=== PATIENT | female | born 1965 | race Caucasian/White ===

== ENCOUNTER 2020-08-13 17:10 | Outpatient (CLI) | payer MEDICARE, MEDICAID | END 2020-08-13 17:11 | disposition home or self-care (01) | LOC: COV 17:10 | PROVIDERS: ATTEND Family Medicine | DX: M79.10 Myalgia, unspecified site (principal); R53.83 Other fatigue; R68.83 Chills (without fever); J02.9 Acute pharyngitis, unspecified; R19.7 Diarrhea, unspecified; R09.81 Nasal congestion; R43.8 Other disturbances of smell and taste; Z20.828 Contact with and (suspected) exposure to other viral communicable diseases ==

== ENCOUNTER 2020-09-28 12:38 | Outpatient (CLI) | payer MEDICARE, MEDICAID ==
[2020-09-28 16:01] LABS: BASOPHILS % (AUTO) 0.6 %; EOSINOPHILS # (AUTO) 0.2 10^3/uL (0.0-0.7); EOSINOPHILS % (AUTO) 2.6 %; HGB - HEMOGLOBIN 14.2 g/dL (12.0-16.0); LYMPHOCYTES # (AUTO) 2.4 10^3/uL (1.5-3.5); LYMPHOCYTES % (AUTO) 38.9 %; MEAN CORPUSCULAR HEMOGLOBIN 31.4 pg (27.0-31.0); MEAN CORPUSCULAR HGB CONC 32.1 g/dL (32.0-36.0); MEAN PLATELET VOLUME 9.9 fL (7.9-10.8); MONOCYTES # (AUTO) 0.4 10^3/uL (0.0-1.0); MONOCYTES % (AUTO) 5.7 %; NEUTROPHILS # (AUTO) 3.3 10^3/uL (1.5-6.6); PLT - PLATELET COUNT 344 10^3/uL (130-450); RED BLOOD COUNT 4.52 10^6/uL (4.20-5.40); RED CELL DISTRIBUTION WIDTH 12.1 % (12.0-15.0); WHITE BLOOD COUNT 6.3 x10^3/uL (4.8-10.8)
[2020-09-28 16:15] LABS: ALBUMIN 4.2 g/dL (3.2-5.5); ALBUMIN/GLOBULIN RATIO 1.2 (1.0-2.2); ALKALINE PHOSPHATASE 90 IU/L (42-121); ALT ALANINE AMINOTRANSFERASE 23 IU/L (10-60); AST ASPARTATE AMINOTRANSFERASE 20 IU/L (10-42); BILIRUBIN,TOTAL 0.7 mg/dL (0.2-1.0); BUN - BLOOD UREA NITROGEN 11 mg/dL (6-20); CALCIUM 9.4 mg/dL (8.5-10.3); CARBON DIOXIDE - CO2 27 mmol/L (21-32); CHLORIDE 105 mmol/L (101-111); CHOL/HDL RATIO 3.9 (<4.4); CHOLESTEROL 227 mg/dL; CREATININE 0.7 mg/dL (0.4-1.0); GLUCOSE 98 mg/dL (70-100); HDL CHOLESTEROL 58 mg/dL; LDL CHOLESTEROL,CALCULATED 156 mg/dL; LDL/HDL RATIO 2.7 (<4.4); SODIUM 139 mmol/L (135-145); TOTAL PROTEIN 7.6 g/dL (6.7-8.2); VLDL CHOLESTEROL 13 mg/dL
== END 2020-09-28 12:39 | disposition home or self-care (01) ==
LOC: LAB.S 12:38
PROVIDERS: ATTEND Physician Assistant
DX: F33.42 Major depressive disorder, recurrent, in full remission (principal); G47.00 Insomnia, unspecified; E78.5 Hyperlipidemia, unspecified; E55.9 Vitamin D deficiency, unspecified; F41.9 Anxiety disorder, unspecified; Z79.899 Other long term (current) drug therapy
CPT/HCPCS: 36415; 80053; 80061; 82306; 83721; 84443; 85025

== ENCOUNTER 2020-10-11 12:01 | Emergency (ER) | payer MEDICARE, MEDICAID ==
[2020-10-11] MEDS ORDERED: SODIUM CHLORIDE 0.9% 1,000 ML IV STA (12:34)
[2020-10-11] MEDS ORDERED: MORPHINE 10 MG/ML VIAL IVP STA (12:34)
[2020-10-11] MEDS ORDERED: ONDANSETRON 4 MG/2 ML VIAL IVP STA (12:34)
--- NOTE | 2020-10-11 12:37 | ED Physician Documentation ---
History of Present Illness - Stated complaint Stated Complaint: ABD PX - Chief complaint Chief Complaint: Abd Pain - Additonal information Additional information: 55-year-old female presents to the emergency department with chief complaint of right upper quadrant abdominal and right lower rib pain. She reports that About 1 month ago she had fallen and thought that she had injured her right lower ribs. She did not seek medical care for that And had at one point felt that the pain was getting better. however about a week ago she began having worsening pain in this area. Pain is certainly worse after eating with associated nausea. She denies any fevers vomiting diarrhea or melena. She also reports that she was told she had a small hiatal hernia about 5 years ago and is unsure if this is related. Screening labs today are essentially couple. No leukocytosis significant transaminase or findings of urinary tract infection/hematuria. We did proceed with a limited right upper quadrant abdominal ultrasound that also revealed no findings consistent with acute cholecystitis. I do not feel that she would benefit from CT imaging at this time. She may have musculoskeletal pain related to the fall a month ago. She feels that she had cleaned too hard at home and exacerbated the pain. She did have moderate relief with the Toradol. I have advised the lidocaine patch over the rib wall that is tender as well as continuation of the as needed Motrin and Tylenol at home. She will return to the emergency department for worsening symptoms. Review of Systems Constitutional: denies: Fever, Chills Eyes: reports: Reviewed and negative Ears: reports: Reviewed and negative Nose: reports: Reviewed and negative Throat: reports: Reviewed and negative Cardiac: reports: Chest pain / pressure Respiratory: reports: Reviewed and negative GI: reports: Abdominal Pain, Nausea, Constipation. denies: Vomiting, Bloody / black stool : denies: Dysuria, Frequency, Hesitancy Skin: reports: Reviewed and negative Musculoskeletal: reports: Reviewed and negative Neurologic: reports: Reviewed and negative PD PAST MEDICAL HISTORY - Allergies Allergies/Adverse Reactions: Allergies Allergy/AdvReac Type Severity Reaction Status Date / Time No Known Drug Allergies Allergy Verified 10/11/20 12:13 PD ED PE EXPANDED - General General: Alert, No acute distress - Cardiac Cardiac: Regular Rate, Regular Rhythm, Radial strong equal, Pedal strong equal, Cap refill < 2 sec. No: Murmur Present - Respiratory Respiratory: Clear to ausultation yousuf, Other (tenderness to palpation right lower lateral anterior ribs). No: Distress, Labored - Abdomen Abdomen: Normal Bowel sounds, Tender to palpation, RUQ (Tenderness to right upper quadrant. No tenderness left flank left CVA right lower quadrant or pelvic area.). No: Rebound, Guarding - Derm Derm: Normal color. No: Rash, Petecchiae, Purpura - Extremities Extremities: Normal, Deformity - Neuro Neuro: Alert and Oriented X 3, CNII-XII intact - GCS Eye Opening: Spontaneous Motor: Obeys Commands Verbal: Oriented Total: 15 Results - Vitals Vitals: Vital Signs - 24 hr 10/11/20 10/11/20 10/11/20 12:10 12:29 14:11 Temperature 36.1 C L Heart Rate 80 68 53 L Respiratory 16 18 18 Rate Blood Pressure 111/72 116/87 H 134/82 H O2 Saturation 99 100 100 Oxygen O2 Source Room air - Labs Labs: Laboratory Tests 10/11/20 10/11/20 10/11/20 13:00 13:00 14:00 WBC 8.4 RBC 4.19 L Hgb 13.4 Hct 39.9 MCV 95.2 MCH 32.0 H MCHC 33.6 RDW 12.1 Plt Count 274 MPV 9.6 Neut # (Auto) 4.6 Lymph # (Auto) 3.1 [place] # (Auto) 0.5 Eos # (Auto) 0.2 Baso # (Auto) 0.1 Absolute Nucleated RBC 0.00 Nucleated RBC % 0.0 Sodium 139 Potassium 3.9 Chloride 104 Carbon Dioxide 23 Anion Gap 12.0 BUN 11 Creatinine 0.6 Estimated GFR (MDRD) 104 Glucose 94 Calcium 8.9 Total Bilirubin 0.6 AST 17 ALT 18 Alkaline Phosphatase 74 Total Protein 7.0 Albumin 4.0 Globulin 3.0 Albumin/Globulin Ratio 1.3 Lipase 68 H Urine Color YELLOW Urine Clarity CLEAR Urine pH 6.0 Ur Specific [place] 1.020 Urine Protein NEGATIVE Urine Glucose (UA) NEGATIVE Urine Ketones 15 H Urine Occult Blood NEGATIVE Urine Nitrite NEGATIVE Urine Bilirubin NEGATIVE Urine Urobilinogen 0.2 (NORMAL) Ur Leukocyte Esterase NEGATIVE Ur Microscopic Review NOT INDICATED Urine Culture Comments NOT INDICATED - Rads (name of study) CXR Radiology: Final report received (no acute cardiopulmonary findings) abd US limited Radiology: See rad report, Other (Technologist reports no findings consistent with acute cholecystitis. No gallstones. CBD within normal size. No obstructing stones. No pericholecystic fluid.) PD MEDICAL DECISION MAKING - ED course Complexity details: reviewed results, re-evaluated patient, considered differential, d/w patient ED course: 55-year-old female presents to the emergency department for evaluation of about 1 week right upper quadrant abdominal pain as well as right lower anterior rib pain. She does report a fall of about 1 month ago. However the pain in her abdomen is worse after eating. And she does have aRUQ pain, but no murphys, rebound or guarding. We will proceed with routine screening labs as well as a limited abdominal ultrasound to evaluate for possible cholecystitis. 1430: Screening labs show no acute findings. No leukocytosis, signs of urinary tract infection, hematuria or significant transaminase. Abdominal ultrasound did not reveal any findings consistent with acute cholecystitis. Chest x-ray showed no pneumonia. No obvious rib fractures. She was given Toradol here in the emergency department and did have moderate relief of the pain. I do not feel that she would benefit from CT imaging at this time given that her exam and labs are otherwise reassuring. I recommend she continue Tylenol and Motrin at home. She may benefit from a lidocaine patch over the rib wall that is tender. Emergent return precautions discussed Departure - Departure Disposition: 01 Home, Self Care Clinical Impression: RUQ abdominal pain, Rib pain on right side Condition: Stable Record reviewed to determine appropriate education?: Yes Comments: Jessa your chest x-ray today was normal. Your labs today are normal. Your urine shows no signs of infection or blood in it. The ultrasound that we completed did not show any findings that suggest problems with your gallbladder. The cause of your pain is unclear but it may be muscle strain related to recently cleaning hard or from the fall 1 month ago. I recommend that you continue with Tylenol and ibuprofen [id number] at home. You may benefit from buying an [id number] lidocaine patch and placing it on your rib wall. These patches are called Salonpas at the pharmacy. Please return to the emergency department for fevers, uncontrolled vomiting, worsening pain or any other emergent concerns. I do hope that you are feeling better soon
[2020-10-11] MEDS ORDERED: ACETAMINOPHEN 1,000 MG/100 ML 100 ML IV ONE (13:09)
[2020-10-11 13:15] LABS: BASOPHILS # (AUTO) 0.1 10^3/uL (0.0-0.1); BASOPHILS % (AUTO) 0.6 %; EOSINOPHILS # (AUTO) 0.2 10^3/uL (0.0-0.7); EOSINOPHILS % (AUTO) 1.9 %; HGB - HEMOGLOBIN 13.4 g/dL (12.0-16.0); LYMPHOCYTES # (AUTO) 3.1 10^3/uL (1.5-3.5); LYMPHOCYTES % (AUTO) 36.9 %; MEAN CORPUSCULAR HGB CONC 33.6 g/dL (32.0-36.0); MEAN CORPUSCULAR VOLUME 95.2 fL (81.0-99.0); MEAN PLATELET VOLUME 9.6 fL (7.9-10.8); MONOCYTES # (AUTO) 0.5 10^3/uL (0.0-1.0); NEUTROPHILS # (AUTO) 4.6 10^3/uL (1.5-6.6); NEUTROPHILS % (AUTO) 54.4 %; PLT - PLATELET COUNT 274 10^3/uL (130-450); RED BLOOD COUNT 4.19 10^6/uL (4.20-5.40); RED CELL DISTRIBUTION WIDTH 12.1 % (12.0-15.0); WHITE BLOOD COUNT 8.4 x10^3/uL (4.8-10.8)
--- NOTE | 2020-10-11 13:20 | XRAY Report ---
PROCEDURE: Chest 1 View X-Ray INDICATIONS: chest pain TECHNIQUE: One view of the chest was acquired. COMPARISON: None. FINDINGS: Surgical changes and devices: None. Lungs and pleura: No pleural effusions or pneumothorax. Lungs are clear. Mediastinum: Mediastinal contours appear normal. Heart size is normal. Bones and chest wall: No suspicious bony lesions. Overlying soft tissues appear unremarkable. IMPRESSION: No acute cardiopulmonary findings. Reviewed by: Mahnaz Murillo MD on 10/11/2020 12:19 PM [facility] Approved by: Mahnaz Murillo MD on 10/11/2020 12:19 PM [facility] Station ID: [id number]
[2020-10-11 13:36] LABS: ALBUMIN/GLOBULIN RATIO 1.3 (1.0-2.2); BILIRUBIN,TOTAL 0.6 mg/dL (0.2-1.0); CALCIUM 8.9 mg/dL (8.5-10.3); CREATININE 0.6 mg/dL (0.4-1.0)
[2020-10-11] MEDS ORDERED: KETOROLAC 30 MG/ML VIAL IVP STA (13:43)
[2020-10-11 14:06] LABS: BILIRUBIN,URINE NEGATIVE (NEGATIVE); CLARITY,URINE CLEAR (CLEAR); GLUCOSE, URINE (UA) NEGATIVE (NEGATIVE); KETONES,URINE (UA) 15 mg/dL (NEGATIVE); LEUKOCYTE ESTERASE, URINE NEGATIVE (NEGATIVE); NITRITE,URINE NEGATIVE (NEGATIVE); OCCULT BLOOD,URINE NEGATIVE (NEGATIVE); PROTEIN,URINE NEGATIVE (NEGATIVE); UROBILINOGEN,URINE 0.2 (NORMAL) E.U./dL (NORMAL)
[2020-10-11 14:12] VITALS: BP 134/82
--- NOTE | 2020-10-11 14:56 | Ultrasound Report ---
PROCEDURE: Abdomen Limited INDICATIONS: RUQ pain; ? GB TECHNIQUE: Real-time scanning was performed of the abdominal and retroperitoneal organs, with image documentatio n. COMPARISON: None. FINDINGS: Liver: Liver is normal in size and homogeneous in echotexture. Gallbladder: The gallbladder wall measures 2 mm in diameter. Possible sludge is layered in the fundus . No stones, pericholecystic fluid, or sonographic [place] sign. Biliary ducts: Intrahepatic bile ducts are non-dilated. Extrahepatic bile duct caliber measures 3 m m. Normal is 6-7 mm or less in diameter, or 10 mm or less post-cholecystectomy. Pancreas: Visualized portions of the pancreas are sonographically normal. Kidneys: Right kidney measures 9.3 cm long. No hydronephrosis or nephrolithiasis. No solid masses . IVC: Intrahepatic inferior vena cava is patent. Miscellaneous: No free abdominal fluid. IMPRESSION: 1. Possible gallbladder sludge. No findings to suggest acute cholecystitis or choledocholithiasis. Reviewed by: Mahnaz Murillo MD on 10/11/2020 1:55 PM [facility] Approved by: Mahnaz Murillo MD on 10/11/2020 1:55 PM [facility] Station ID: [id number]
== END 2020-10-11 14:39 | disposition home or self-care (01) ==
LOC: ED 12:01
DX: R10.11 Right upper quadrant pain (principal); R07.81 Pleurodynia; R11.0 Nausea; K44.9 Diaphragmatic hernia without obstruction or gangrene
CPT/HCPCS: 36415; 71045; 76705; 80053; 81003; 83690; 85025; 96365; 96375; 99284; J0131; 81001; 87086

== ENCOUNTER 2020-10-29 14:12 | Outpatient (CLI) | payer MEDICARE, MEDICAID ==
--- NOTE | 2020-10-29 16:34 | DEXA Report ---
PROCEDURE: Dexa Spine and/or Hip INDICATIONS: POSTMENOPAUSAL TECHNIQUE: Dual energy x-ray absorptiometry (DXA) was performed on a dinCloud System. Regions measur ed are the AP Spine, femoral neck, and if needed forearm. COMPARISON: None. FINDINGS: Lumbar Spine: Bone Mineral Density 1.119 g/cm/cm,T score -0.5, normal Left Hip: Bone Mineral Density 0.792 g/cm/cm,T score -1.7, moderate osteopenia Left Femoral Neck: Bone Mineral Density 0.818 g/cm/cm, T score -1.6, moderate osteopenia (T score greater or equal to -1.0: NORMAL) (T score from -1.1 to -2.4: OSTEOPENIA) (T score less than or equal to -2.5 to: OSTEOPOROSIS) Impression: Moderate osteopenia within the left hip and femoral neck. Patients with diagnosis of osteoporosis or osteopenia should have regular bone mineral density assess ment. For those eligible for Medicare, routine testing is allowed once every 2 years. Testing frequ ency can be increased for patients who have rapidly progressing disease or for those who are receivin g medical therapy to restore bone mass. Reviewed by: Sherrell Winchester MD on 10/29/2020 4:32 PM PST Approved by: Sherrell Winchester MD on 10/29/2020 4:32 PM PST Station ID: [id number]
== END 2020-10-29 14:13 | disposition home or self-care (01) ==
LOC: DI 14:12
PROVIDERS: ATTEND Physician Assistant
DX: M85.89 Other specified disorders of bone density and structure, multiple sites (principal); Z78.0 Asymptomatic menopausal state

== ENCOUNTER 2020-11-13 12:26 | Outpatient (CLI) | payer MEDICARE, MEDICAID | END 2020-11-13 12:27 | disposition critical access hospital (66) | LOC: EMS 12:26 | PROVIDERS: ATTEND Surgery | DX: S69.91XA Unspecified injury of right wrist, hand and finger(s), initial encounter (principal); W01.0XXA Fall on same level from slipping, tripping and stumbling without subsequent striking against object, initial encounter; Y93.E6 Activity, residential relocation; Y92.009 Unspecified place in unspecified non-institutional (private) residence as the place of occurrence of the external cause | CPT/HCPCS: A0425; A0427 ==

== ENCOUNTER 2020-11-13 13:06 | Emergency (ER) | payer MEDICARE, MEDICAID ==
--- NOTE | 2020-11-13 13:55 | XRAY Report ---
PROCEDURE: Hand 3 View RT INDICATIONS: FOOSH TECHNIQUE: 3 views of the hand(s) acquired. COMPARISON: None FINDINGS: Bones: Comminuted, intra-articular fracture of the distal radius is noted. Distal radius fracture fra gments and carpal bones are dorsally displaced and angulated. Soft tissues: No suspicious soft tissue calcifications. IMPRESSION: Comminuted, intra-articular distal radius fracture. Reviewed by: Malka Garrett MD, PhD on 11/13/2020 12:53 PM [facility] Approved by: Malka Garrett MD, PhD on 11/13/2020 12:53 PM [facility] Station ID: [id number]
--- NOTE | 2020-11-13 13:57 | XRAY Report ---
PROCEDURE: Forearm RT INDICATIONS: FOOSH TECHNIQUE: 2 views of the forearm were acquired. COMPARISON: Concurrent x-ray studies of the wrist and hand. FINDINGS: Bones: There is a comminuted fracture of the distal radius with extension to the radiocarpal and dist al radioulnar joints. A minimally displaced fracture is present at the base of the ulnar styloid. The re is associated dorsal displacement and angulation. No fractures in the proximal or mid radius or ul na. Soft tissues: There is periarticular soft tissue swelling at the wrist. IMPRESSION: 1. Comminuted fracture of the distal radius with dorsal angulation and displacement. Articular extens ion to the radiocarpal and distal radioulnar joints demonstrated. Reviewed by: Kahlil Ramos MD on 11/13/2020 1:55 PM [facility] Approved by: Kahlil Ramos MD on 11/13/2020 1:55 PM [facility] Station ID: [id number]
--- NOTE | 2020-11-13 13:57 | XRAY Report ---
PROCEDURE: Wrist 3 View RT INDICATIONS: wrist pain TECHNIQUE: 3 views of the wrist were acquired. COMPARISON: None FINDINGS: Bones: Comminuted, intra-articular fracture of the distal radius is noted. Radius fracture fragments and carpal bones are dorsally subluxed with dorsal angulation. Cortical step-off at the base of the u lnar styloid process noted compatible with nondisplaced fracture. Soft tissues: No suspicious soft tissue calcifications. IMPRESSION: 1. Comminuted, intra-articular distal radius fracture. 2. Nondisplaced ulnar styloid process fracture. Reviewed by: Malka Garrett MD, PhD on 11/13/2020 12:55 PM [facility] Approved by: Malka Garrett MD, PhD on 11/13/2020 12:55 PM [facility] Station ID: [id number]
[2020-11-13] MEDS ORDERED: LIDOCAINE 2%-EPI 1:100000 20 ML MDV SUBQ STA (14:10)
[2020-11-13] MEDS ORDERED: HYDROcod/ACETAM 10 MG/325 MG TABLET PO STA (14:10)
[2020-11-13] MEDS ORDERED: KETOROLAC 30 MG/ML VIAL IM STA (14:10)
--- NOTE | 2020-11-13 16:27 | XRAY Report ---
PROCEDURE: Wrist 3 View RT INDICATIONS: post reduction TECHNIQUE: 3 views of the wrist were acquired. COMPARISON: Earlier on 11/13/2020 FINDINGS: Bones: Casted views. Impacted, markedly comminuted, displaced distal radius fracture with dorsal subl uxation of the carpus. Soft tissues: No suspicious soft tissue calcifications. IMPRESSION: Status post placement of a cast. The distal radius fracture remains impacted, markedly comminuted, an d significantly displaced. Reviewed by: Dannie Mejias MD on 11/13/2020 4:26 PM PST Approved by: Dannie Mejias MD on 11/13/2020 4:26 PM PST Station ID: [id number]
[2020-11-13] MEDS ORDERED: KETAMINE 500 MG/10 ML VIAL IVP STA (17:18)
--- NOTE | 2020-11-13 18:03 | ED Physician Documentation ---
History of Present Illness - Stated complaint Stated Complaint: FALL, R WRIST PX - Chief complaint Chief Complaint: Trauma Ext - History obtained from History obtained from: Patient - Additonal information Additional information: 55yF with pmh osteoporosis p/w mechanical trip and fall and FOOSH today with sudden onset severe constant aching pain to the R wrist a/w swelling. denies prior injury. denies numbness or weaknes.s Review of Systems Skin: reports: Other (+swelling to wrist) Musculoskeletal: reports: Extremity pain, Joint pain Neurologic: denies: Focal weakness, Numbness PD PAST MEDICAL HISTORY - Past Medical History Past Medical History: Yes Cardiovascular: High cholesterol Respiratory: None Neuro: Headaches Endocrine/Autoimmune: None GI: GERD PSYCHIC READER: None Psych: Anxiety Musculoskeletal: Osteoporosis Derm: None - Past Surgical History Past Surgical History: No /PSYCHIC READER: Hysterectomy - Present Medications Home Medications: Ambulatory Orders Medication Instructions Recorded Confirmed Atorvastatin [Lipitor] 20 mg PO DAILY 11/13/20 11/13/20 Duloxetine HCl [Cymbalta] 60 mg PO DAILY 11/13/20 11/13/20 Ergocalciferol [Vitamin D2] 50,000 unit PO Q7D 11/13/20 11/13/20 clonazePAM [Clonazepam] 1 mg PO DAILY 11/13/20 11/13/20 traZODone [Desyrel] 50 mg PO HS 11/13/20 11/13/20 - Allergies Allergies/Adverse Reactions: Allergies Allergy/AdvReac Type Severity Reaction Status Date / Time No Known Drug Allergies Allergy Verified 11/13/20 13:16 - Social History Does the pt smoke?: Yes Smoking Status: Current every day smoker Does the pt drink ETOH?: Yes Does the pt have substance abuse?: No Substance Use and Type: Marijuana - Immunizations Immunizations are current?: Yes - POLST Patient has POLST: No PD ED PE NORMAL - Vitals Vital signs reviewed: Yes - General General: Alert and oriented X 3, No acute distress - HEENT HEENT: Atraumatic, PERRL, EOMI, Moist mucous membranes, Pharynx benign - Neck Neck: No bony TTP - Cardiac Cardiac: RRR - Respiratory Respiratory: No respiratory distress, Clear bilaterally - Abdomen Abdomen: Non tender, Non distended - Derm Derm: Normal color, Other (R wrist swelling) - Extremities Extremities: Other - Neuro Neuro: Alert and oriented X 3 - Psych Psych: Normal mood, Normal affect Results - Vitals Vitals: Vital Signs - 24 hr 11/13/20 11/13/20 11/13/20 13:13 17:16 17:40 Temperature 36.7 C Heart Rate 57 L 65 74 Respiratory 16 16 16 Rate Blood Pressure 132/69 H 111/75 122/76 O2 Saturation 100 98 99 11/13/20 11/13/20 11/13/20 17:51 17:56 18:00 Temperature Heart Rate 121 H 133 H 147 H Respiratory 16 16 22 Rate Blood Pressure 154/77 H 138/94 H O2 Saturation 100 100 Oxygen O2 Source Room air Procedures - Splint (location) Upper extremity right Splint applied by: Physician Type of splint: Sugar tong Other: Patient tolerated well, No complications, Neurovascular intact, Good alignment - Procedural sedation Sedation prep: Informed consent, Time out completed, Last meal (30 min prior), PE performed, ASA 1 - healthy Sedation medications: toradol, ketamine Patient status during sedation: Drowsy, Responds to tactile, Vitals remained stable, Maintained airway, Recovered uneventfully Sedation recovery: Recovered uneventfully Time in sedation (Minutes): 20 PD MEDICAL DECISION MAKING - ED course ED course: 55-year-old woman presented with acute displaced comminuted distal radius fracture status post FOOSH. Also with ulnar styloid fracture. Attempted reduction with hematoma block and was unable to reduce, therefore we used conscious sedation with successful reduction. Patient recovered without incident. Return precautions given. She will follow up with Dr. Torres in Ortho clinic. Departure - Departure Clinical Impression: Distal radius fracture, right, Fracture of ulnar styloid Condition: Good Instructions: ED Sedation Conscious Dc Ch, Distal Radius Fx Follow-Up: Jeff Torres MD [Provider Admit Priv/Credential] - Comments: You came into the emergency department with a ulnar styloid fracture and a displaced comminuted radius fracture. This means that you had a break in both of the bones of the forearm near the wrist. Comminuted means that it was broken in more than 1 place. Because the radius was displaced, we had to set the bone. You were given ketamine as an anesthetic and then we put the bone back into place. You will need to follow up with orthopedics in 1 week for repeat xrays and to check the arm. keep the splint dry and elevated in the meantime. return to the ed if your splint comes off for any reason, if you have severe pain or numbness in the fingers, or other concerns.
--- NOTE | 2020-11-13 18:26 | XRAY Report ---
PROCEDURE: Wrist 2 View RT INDICATIONS: POST REDUCTION TECHNIQUE: 2 views of the wrist were acquired. COMPARISON: Right wrist series dated 11/13/2020 at 1546 hours FINDINGS: Bones: There has been partial reduction with improved alignment of the distal radial fracture which d emonstrates residual displacement and impaction. Scaphoid view: Not requested Soft tissues: No suspicious soft tissue calcifications. IMPRESSION: Improved alignment of distal radial fracture. Reviewed by: Bairon Lowery MD on 11/13/2020 6:24 PM PST Approved by: Bairon Lowery MD on 11/13/2020 6:24 PM PST Station ID: [id number]
[2020-11-13 19:23] VITALS: BP 110/64
[2020-11-13 20:24] LABS: C. PNEUMONIAE- RESP PCR PANEL NOT DETECTED
[2020-11-14] MEDS ORDERED: LACTATED RINGERS 1,000 ML IV SCH (09:00)
== END 2020-11-13 19:30 | disposition home or self-care (01) ==
LOC: EDUNIT# → ED 13:06
DX: S52.571A Other intraarticular fracture of lower end of right radius, initial encounter for closed fracture (principal); S52.614A Nondisplaced fracture of right ulna styloid process, initial encounter for closed fracture; W01.0XXA Fall on same level from slipping, tripping and stumbling without subsequent striking against object, initial encounter; Z20.822 Contact with and (suspected) exposure to COVID-19; M81.0 Age-related osteoporosis without current pathological fracture; F17.200 Nicotine dependence, unspecified, uncomplicated
CPT/HCPCS: 25605; 73090; 73100; 73110; 73130; 87631; 96372; 99152; 99283; 99285; A9270; 0202U; 94770

== ENCOUNTER 2020-11-14 08:50 | Day surgery (SDC) | payer MEDICARE, MEDICAID ==
--- NOTE | 2020-11-14 08:48 | HISTORY & PHYSICAL EXAMINATION ---
Chief Complaint - Chief Complaint Chief Complaint: Right wrist pain History of Present Illness - Admitted From Admitted From:: home - History Obtained From Records Reviewed: ER notes History obtained from: patient - History of Present Illness HPI Comment/Other: This 55-year-old [id number] woman slipped and fell on an outstretched right hand. Immediate onset of pain and deformity in the right wrist. Denies any open wound. Isolated injury to the right wrist. She was seen in the emergency room where radiographs revealed a displaced distal radius fracture. Initially an attempt was made for reduction with a hematoma block however no improvement alignment was obtained. I was then contacted and recommended that a closed reduction with procedural sedation be performed. This did occur with some improvement in alignment however there is persistent shortening and dorsal angulation of the distal segment. She was splinted and sent home, to return to the hospital this morning. Pain well controlled. Some paresthesias to the median nerve distribution. No previous osteoporotic fractures. She does does take vitamin D supplementation. She did have a bone density test completed 2 weeks ago which showed normal bone quality of the spine and osteopenia of the hip. History - Past Medical History Cardiovascular: reports: High cholesterol Respiratory: reports: None Neuro: reports: Headaches Endocrine/Autoimmune: reports: None GI: reports: GERD GARAGE HELPER: reports: None Psych: reports: Anxiety Musculoskeletal: reports: Osteoporosis Derm: reports: None - Past Surgical History /GARAGE HELPER: reports: Hysterectomy - POLST Patient has POLST: No Meds/Allgy - Home Medications Home Medications: Ambulatory Orders Medication Instructions Recorded Confirmed Atorvastatin [Lipitor] 20 mg PO DAILY 11/13/20 11/13/20 Duloxetine HCl [Cymbalta] 60 mg PO DAILY 11/13/20 11/13/20 Ergocalciferol [Vitamin D2] 50,000 unit PO Q7D 11/13/20 11/13/20 clonazePAM [Clonazepam] 1 mg PO DAILY 11/13/20 11/13/20 traZODone [Desyrel] 50 mg PO HS 11/13/20 11/13/20 - Allergies Allergies/Adverse Reactions: Allergies Allergy/AdvReac Type Severity Reaction Status Date / Time No Known Drug Allergies Allergy Verified 11/13/20 13:16 Review of Systems - Constitutional Constitutional: reports: Fatigue - Other Findings Other Findings: Complete review of systems negative aside from her right wrist pain. Exam - Vital Signs Reviewed Vital Signs: Yes - Physical Exam General Appearance: positive: No acute distress Eyes Bilateral: positive: Normal inspection, PERRL, EOMI Neck: positive: Nml inspection Respiratory: positive: No respiratory distress, Breath sounds nml Cardiovascular: positive: Regular rate & rhythm Abdomen: positive: Non-tender Skin: positive: Other (Skin is intact) Extremities: positive: Other (Deformity and tenderness at the distal radius. Range of motion not attempted due to pain.) Neurologic/Psychiatric: positive: Oriented x3, Motor nml Conclusion/Plan - Problem List (1) Distal radius fracture, right Conclusion/Plan: We have discussed operative and nonoperative management. Given the intra- articular involvement and persistent deformity despite attempts at reduction, I have recommended open reduction internal fixation of the right distal radius. We have discussed the risks and benefits of surgery, Including the risk of anesthetic problems, infection, neurovascular damage. We have discussed the risk of nonunion, ongoing pain and stiffness.The patient would like to proceed.Consent has been signed and site has been marked. Qualifiers: Encounter type: initial encounter Fracture type: closed Fracture morphology: other intra-articular Qualified Code(s): S52.571A - Other intraarticular fracture of lower end of right radius, initial encounter for closed fracture - Lab Results Lab results reviewed: Yes - Diagnostic Imaging Results Diagnostic Imaging Results: positive: Read independently (Comminuted intra- articular right distal radius fracture with dorsal displacement and angulation. Greater than 2 parts.)
[2020-11-14] MEDS ORDERED: LACTATED RINGERS 1,000 ML IV ONE ×2 (09:44→13:24)
[2020-11-14] MEDS ORDERED: GABAPENTIN 400 MG CAPSULE ONE (09:57)
[2020-11-14] MEDS ORDERED: ACETAMINOPHEN 1,000 MG/100 ML 100 ML IV ONE (09:58)
[2020-11-14] MEDS ORDERED: CELECOXIB 100 MG CAPSULE PO ONE (09:58)
[2020-11-14] MEDS ORDERED: ceFAZolin 2 GM/50 ML 2 GM/50 ML BAG IV ONE (09:58)
[2020-11-14] MEDS: fentaNYL 100 MCG/2 ML VIAL IVP PRN ×2 (10:06→10:15)
[2020-11-14] MEDS ORDERED: fentaNYL 100 MCG/2 ML VIAL ONE (10:13)
--- NOTE | 2020-11-14 11:29 | ANESTHESIA ---
Pre-Anesthesia VS, & Labs - Diagnosis Distal right radial fracture - Procedure ORIF right distal radius fracture Vital Signs: Temp Pulse Resp BP Pulse Ox 37 C 59 L 18 137/74 H 99 11/14/20 09:00 11/14/20 09:00 11/14/20 09:00 11/14/20 09:00 11/14/20 09:00 Height: 5 ft 9 in Weight (kg): 68.04 kg Body Mass Index: 22.1 BMI Classification: Healthy weight - NPO >8 hours - Is Patient ?: No Home Medications and Allergies Active Medications Fentanyl (Fentanyl 100 Mcg/2 Ml Vial) 50 mcg IVP PRN PRN PRN Reason: PAIN Last Admin: 11/14/20 10:15 Dose: 50 mcg Documented by: Atorvastatin [Lipitor] 20 mg PO DAILY 11/13/20 Duloxetine HCl [Cymbalta] 60 mg PO DAILY 11/13/20 Ergocalciferol [Vitamin D2] 50,000 unit PO Q7D 11/13/20 clonazePAM [Clonazepam] 1 mg PO DAILY 11/13/20 traZODone [Desyrel] 50 mg PO HS 11/13/20 Allergies/Adverse Reactions: Allergies Allergy/AdvReac Type Severity Reaction Status Date / Time ketamine AdvReac Hallucinati Verified 11/14/20 10:26 ons Anes History & Medical History - Anesthetic History Anesthesia Complications: reports: Post-Operative Nausea/Vomiting - Medical History Cardiovascular: reports: High cholesterol Pulmonary: reports: None Gastrointestinal: reports: GERD Urinary: reports: None, Other (ureter obstrucion, treated with ureteroscopy) Neuro: reports: Headaches, Migraines Musculoskeletal: reports: Osteoporosis Endocrine/Autoimmune: reports: None Blood Disorders: reports: None Skin: reports: None Smoking Status: Current every day smoker (1/2 pack per day 20 years) Psychosocial: reports: Depression, Anxiety - Surgical History Urologic: Ureterolithotomy (stones) Gynecologic: Hysterectomy, Other (breast lumpectomy) Exam General: Alert, Oriented x3, Cooperative, No acute distress Dental: WNL Mouth Openin Fingerbreadth Neck Mobility: Normal Mallampati classification: II Mental/Cognitive Status: Alert/Oriented X3, Normal for patient Plan Anesthesia Type: Axillary Block (right) Consent for Procedure(s) Verified and Reviewed: Yes Code Status: Attempt Resuscitation ASA classification: 2-Mild systemic disease Is this case an emergency?: No
[2020-11-14] MEDS ORDERED: BUPIVACAINE 0.25% PF 30 ML VIAL ONE (11:44)
[2020-11-14] MEDS ORDERED: LIDOCAINE 2%-EPI 1:100000 20 ML MDV ONE (11:44)
[2020-11-14] MEDS ORDERED: MIDAZOLAM 2 MG/2 ML VIAL ONE (11:46)
[2020-11-14] MEDS ORDERED: ROPIVACAINE 0.2% PF 10 ML VIAL ONE (11:47)
[2020-11-14] MEDS ORDERED: PROPOFOL 200 MG/20 ML VIAL IVP ONE ×2 (11:49→12:32)
[2020-11-14] MEDS ORDERED: LIDOCAINE 1%-EPI 1:100000 20 ML MDV SUBQ ONE ×3 (11:49→13:06)
[2020-11-14] MEDS ORDERED: SEVOFLURANE 250 ML LIQUID INH ONE (11:51)
[2020-11-14] MEDS ORDERED: oxyCODONE 5 MG TABLET PO PRN (13:26)
[2020-11-14] MEDS ORDERED: HYDROmorphone 0.5 MG/0.5 ML SYRINGE IVP PRN ×2 (13:26→13:30)
[2020-11-14] MEDS ORDERED: ONDANSETRON 4 MG/2 ML VIAL IVP PRN ×2 (13:26→13:30)
[2020-11-14] MEDS ORDERED: NALOXONE 0.4 MG/ML VIAL IVP PRN (13:30)
[2020-11-14] MEDS ORDERED: MORPHINE 2 MG/ML CARPUJECT IVP PRN (13:30)
[2020-11-14] MEDS ORDERED: fentaNYL 100 MCG/2 ML VIAL IVP PRN (13:30)
[2020-11-14] MEDS ORDERED: ATROPINE ABBOJECT 1 MG/10 ML SYRINGE IVP PRN (13:30)
[2020-11-14] MEDS ORDERED: KETOROLAC 15 MG/ML VIAL ONE (13:36)
--- NOTE | 2020-11-14 13:37 | OPERATIVE REPORT ---
Operative Report - General Procedure Date: 11/14/20 Planned Procedure: ORIF right distal radius Pre-Op Diagnosis: Comminuted intra-articular right distal radius fracture Procedure Performed: Same Post Op Diagnosis: Same - Procedure Note Primary Surgeon: Jeff Torres MD Anesthesia Technique: MAC, Regional block Estimated Blood Loss (mL): 15 Complications: none - Other Other Information/Narrative: Preamble: This [id number] 55-year-old slipped and fell on an outstretched right arm, sustaining a intra-articular right distal radius fracture. Multiple attempts at reduction were made in the emergency room however were unsuccessful in achieving acceptable alignment. After discussion of the pros and cons of surgery, patient elected to proceed with open reduction internal fixation right distal radius. Operative note: The patient was seen in the preoperative holding area, where consent was signed and site was marked. Patient received regional anesthetic. She also received multimodal analgesia preoperatively. Patient was then taken to the operating room and intravenous sedation was administered. Arm was prepped and draped in the usual sterile fashion with a tourniquet about the upper arm. Timeout was completed, confirming patient, procedure and side. Tourniquet was then inflated, however became undone and was therefore not used for the rest of the case. Bony landmarks were identified and marked. Incision site was then infiltrated with lidocaine with epinephrine. Hematoma block also performed with lidocaine with epinephrine.Longitudinal incision then made over the tendon of flexor carpi radialis. Sharp site dissection carried out down to the tendon sheath. Sheath was incised and Tendon wasretracted ulnarward. Floor of the sheath was then incised with a scalpel.Sharp dissection used to elevate muscle off the volar surface of the radius. Brachial radialis was released with a step cut to facilitate reduction. Reduction maneuver was then performed and provisionally held with a K wire. It was quite unstable. A reduction clamp was then used to close the articular surface gap and K wire was readjusted until I was happy with the reduction. I then selected a [employer] volar distal radius locking plate and provisionally fixated on the distal radius. Position and reduction was confirmed on fluoroscopy. Secured proximally with a single bicortical screw, followed by multiple locking pegs distally. Again position and reduction was confirmed on fluoroscopy. The remainder of the holes were then filled. I was still unhappy with the fixation of the large radial styloid fragment, therefore a stab incision was then made over the styloid. I inserted a single cortical screw across the radial styloid to augment fixation. Again position and reduction was confirmed on fluoroscopy. Final images were saved. Wound was thoroughly irrigated with normal saline. Wound was closed in layers with 2 OV lock followed by 4-0 Monocryl and Dermabond for skin. Sterile dressings then applied. Volar splint followed by a sling were applied. Patient was then taken to the recovery room in stable condition with no intraoperative complications. Postoperative plan: Check x-ray in recovery. Discharge home when able. Ice and elevate the wrist. Follow-up 10 to 14 days in orthopedics clinic for wound check. To go into a removable splint at that time and a referral for occupational therapy for gentle range of motion exercises. Follow-up at 6 weeks with updated radiographs of the wrist.
--- NOTE | 2020-11-14 13:47 | ANESTHESIA POST OP EVALUATION ---
Anesthesia Post Eval - Post Anesthesia Eval Vitals: Last Vital Signs Temp 36.9 C 11/14/20 13:45 Pulse 78 11/14/20 13:45 Resp 18 11/14/20 13:45 BP 141/96 H 11/14/20 13:45 Pulse Ox 100 11/14/20 13:45 CV Function Including HR & BP: positive: Stable Pain Control: positive: Satisfactory Nausea & Vomiting: positive: Negative Mental Status: positive: Baseline Respiratory Status: Airway Patent Hydration Status: Satisfactory Anesthesia Complications: positive: None
[2020-11-14] MEDS ORDERED: LACTATED RINGERS 1,000 ML IV SCH (14:00)
[2020-11-14 14:18] VITALS: BP 107/80
--- NOTE | 2020-11-14 14:48 | XRAY Report ---
PROCEDURE: Wrist 2 View RT INDICATIONS: postop TECHNIQUE: 2 views of the wrist were acquired. COMPARISON: 11/13/2020. FINDINGS: Intact plate and screw fixation of the distal radius. There is expected alignment. Soft tissues: No suspicious soft tissue calcifications. IMPRESSION: Expected alignment of distal radial surgical fixation. Reviewed by: Bowen Mcguire MD on 11/14/2020 2:46 PM PST Approved by: Bowen Mcguire MD on 11/14/2020 2:46 PM PST Station ID: [id number]
--- NOTE | 2020-11-14 16:43 | XRAY Report ---
PROCEDURE: OR C-Arm Procedure INDICATIONS: RIGHT WRIST ORIF TECHNIQUE: Fluoroscopic images were obtained during an operative procedure and submitted for interpre tation following the completion of the procedure. COMPARISON: Prior hand and wrist films 11/13/2020 FINDINGS: This study was performed for intraoperative localization. On these images, gradient screw fixation is seen of the distal radius, with improved anatomic alignment. Please correlate with intraoperative fi ndings. IMPRESSION: Normal intraoperative study. Reviewed by: Roman Scott MD on 11/14/2020 3:42 PM [place] Approved by: Roman Scott MD on 11/14/2020 3:42 PM AKST Station ID: [id number]
== END 2020-11-14 08:51 | disposition home or self-care (01) ==
LOC: SDS 08:50
PROVIDERS: ATTEND Orthopaedic Surgery
DX: S52.571A Other intraarticular fracture of lower end of right radius, initial encounter for closed fracture (principal); F17.210 Nicotine dependence, cigarettes, uncomplicated
CPT/HCPCS: 25609; 73100; A9270; J0131; J0690; J1170; J3490; J7120

== ENCOUNTER 2020-12-21 07:00 | Outpatient (CLI) | payer MEDICARE, MEDICAID ==
--- NOTE | 2020-12-21 14:36 | XRAY Report ---
PROCEDURE: Wrist 3 View RT INDICATIONS: FX OF DISTAL R RADIUS TECHNIQUE: 3 views of the wrist were acquired. COMPARISON: 11/14/2020. 11/13/2020. FINDINGS: Plate and screw fixation of the distal radius. Unchanged alignment. The hardware appears intact. Diffuse osteopenia. Scattered subchondral sclerosis and spurring. Soft tissues: No suspicious soft tissue calcifications. IMPRESSION: Unchanged expected postoperative alignment. Reviewed by: Bowen Goff MD on 12/21/2020 2:35 PM PST Approved by: Bowen Goff MD on 12/21/2020 2:35 PM PST Station ID: [id number]
== END 2020-12-21 23:59 | disposition home or self-care (01) ==
LOC: DI.N 07:00
PROVIDERS: ATTEND Physician Assistant
DX: S52.591P Other fractures of lower end of right radius, subsequent encounter for closed fracture with malunion (principal)

== ENCOUNTER 2021-01-13 14:03 | Outpatient (CLI) | payer MEDICARE, MEDICAID ==
--- NOTE | 2021-01-19 10:09 | Mammography Report ---
BILATERAL DIGITAL SCREENING MAMMOGRAM 3D/2D: 01/13/2021 CLINICAL: Family history of breast cancer. No prior exams were available for comparison. The tissue of both breasts is heterogeneously dense. T his may lower the sensitivity of mammography. There is a possible irregular equal density focal asymmetry in the left breast at 5 o'clock in the re troareolar region. There also is a possible irregular equal density asymmetry in the left breast posterior depth medial region seen on the craniocaudal view only. Additionally, there is a possible oval asymmetry in the left breast anterior depth lateral region see n on the craniocaudal view only. No other significant masses, calcifications, or other findings are seen in either breast. IMPRESSION: INCOMPLETE: NEEDS ADDITIONAL IMAGING EVALUATION The possible irregular equal density focal asymmetry in the left breast at 5 o'clock in the retroareo lar region is indeterminate. Additional views with possible ultrasound are recommended. The possible irregular equal density asymmetry in the left breast posterior depth medial region seen on the craniocaudal view only is indeterminate. Additional views with possible ultrasound are recomm ended. The possible oval asymmetry in the left breast anterior depth lateral region seen on the craniocaudal view only is indeterminate. Additional views with possible ultrasound are recommended. This exam was interpreted at Station ID: [id number]. NOTE: For mammograms, a report in lay terms will be sent to the patient. Approximately 15% of breast malignancies will not be visualized mammographically. In the management of a palpable breast mass, a negative mammogram must not discourage biopsy of a clinically suspicious lesion. Electronically Signed By: Luis Buenrostro M.D. aty/:01/19/2021 09:45:00 ACR BI-RADS Category 0: Incomplete 3340F PARENCHYMAL PATTERN: (D) - The breast(s) demonstrate(s) heterogeneously dense fibroglandular parenchy ma. BI-RADS CATEGORY: (0) - 0 Mammo and [place] [id number] Immediate follow-up LATERALITY: (L)
--- OUTSIDE RECORDS SUMMARY | 2021-01-20 00:01 | EXTERNAL MEDICAL SUMMARY RPT | Continuity of Care Document ---
:1965 Demographics Phone Unavailable Preferred Language Unknown Marital Status Unknown Anglican Affiliation Unknown Race Unknown Ethnic Group Unknown Author Organization [facility] Address [address] [id number] Phone Social History date description facility [id number]
== END 2021-01-13 14:04 | disposition home or self-care (01) ==
LOC: DI.S 14:03
DX: Z12.31 Encounter for screening mammogram for malignant neoplasm of breast (principal); R92.8 Other abnormal and inconclusive findings on diagnostic imaging of breast

== ENCOUNTER 2021-02-10 08:22 | Outpatient (CLI) | payer MEDICARE, MEDICAID ==
--- NOTE | 2021-02-11 12:06 | Ultrasound Report ---
LIMITED ULTRASOUND OF LEFT BREAST: 02/10/2021 CLINICAL: Patient returns today to evaluate a focal asymmetry in the left breast. Comparison is made to exams dated: 02/10/2021 mammogram, 01/13/2021 mammogram - [facility], 01/09/2019 mammogram, 07/06/2017 mammogram, and 01/20/2015 mammogram - [facility]. Color flow ultrasound of the left breast retroareolar was performed. Naqvi scale images of the real- time examination were reviewed. There are a few ectactic ducts in the left breast between 3:00 and 6:00 in the retroareolar region. This duct ectasia displays no posterior acoustic shadowing or enhancement. No intraductal mass or va scularity. This likely correlates with mammography findings. Color flow imaging demonstrates that th ere is no vascularity present. IMPRESSION: BENIGN There is no sonographic evidence of malignancy. The previously described focal asymmetry in the lower outer quadrant of the left breast retroareolar/ anterior depth likely represents benign duct ectasia. A 1 year screening mammogram is recommended. Findings and recommendations were conveyed to the patient during today's evaluation. This exam was interpreted at Station ID: [id number]. Electronically Signed By: Luis Buenrostro M.D. aty/:02/10/2021 10:17:09 Ultrasound BI-RADS: 2 Benign BI-RADS CATEGORY: (2) - 2 RECOMMENDATION: (ANNUAL) - Recommend routine annual screening mammography. [id number] 1 year screening LATERALITY: (B)
--- NOTE | 2021-02-11 12:06 | Mammography Report ---
UNILATERAL LEFT DIGITAL DIAGNOSTIC MAMMOGRAM 3D/2D: 02/10/2021 CLINICAL: Patient returns today to evaluate focal asymmetries in the left breast. Comparison is made to exams dated: 01/13/2021 mammogram - [facility] and 01/09/2019 mammogram - [facility]. The tissue of left breast is heterogeneously dense. This may low er the sensitivity of mammography. The previously described possible irregular equal density focal asymmetry in the left breast at 5 o'c lock in the retroareolar region appears less prominent and decreased in size. The previously described possible irregular equal density asymmetry in the left breast posterior dept h medial region seen on the craniocaudal view only is not reproduced and presumably represented super imposed breast tissue. The previously described possible oval asymmetry in the left breast anterior depth lateral region see n on the craniocaudal view only is not reproduced and presumably represented superimposed breast tiss ue. No other significant masses or calcifications are seen in the breast. IMPRESSION: INCOMPLETE: NEEDS ADDITIONAL IMAGING EVALUATION The possible irregular equal density focal asymmetry in the left breast at 5 o'clock in the retroareo lar region resembles a cyst or dilated duct and is indeterminate. An ultrasound is recommended for further evaluation and is scheduled to immediately follow this examination. The previously described possible irregular equal density asymmetry in the left breast posterior dept h medial region seen on the craniocaudal view only is not reproduced and presumably represented summa tion artifact. The previously described possible oval asymmetry in the left breast anterior depth lateral region see n on the craniocaudal view only is not reproduced and presumably represented summation artifact. This exam was interpreted at Station ID: [id number]. NOTE: For mammograms, a report in lay terms will be sent to the patient. Approximately 15% of breast malignancies will not be visualized mammographically. In the management of a palpable breast mass, a negative mammogram must not discourage biopsy of a clinically suspicious lesion. Electronically Signed By: Luis Buenrostro M.D. aty/:02/10/2021 10:13:43 ACR BI-RADS Category 0: Incomplete 3340F PARENCHYMAL PATTERN: (D) - The breast(s) demonstrate(s) heterogeneously dense fibroglandular parjuany tere. BI-RADS CATEGORY: (0) - 0 Ultrasound [id number] Immediate follow-up LATERALITY: (L)
== END 2021-02-10 08:23 | disposition home or self-care (01) ==
LOC: DI 08:22
PROVIDERS: ATTEND Physician Assistant
DX: R92.8 Other abnormal and inconclusive findings on diagnostic imaging of breast (principal)

== ENCOUNTER 2021-06-18 14:12 | Outpatient (CLI) | payer MEDICARE, MEDICAID ==
--- NOTE | 2021-06-18 14:28 | XRAY Report ---
PROCEDURE: Lumbar Spine 2 View INDICATIONS: LOW BACK PAIN TECHNIQUE: 3 views of the lumbar spine were acquired. COMPARISON: None. FINDINGS: Bones: 5 [id number] vertebrae are present. There is mild dextroscoliosis of lumbar spine cente red at L2 level. Minimal anterolisthesis of L3 on L4 is seen. Mild degenerative endplate changes and bilateral facet arthrosis throughout lumbar spine is seen. No vertebral body compression fractures. No suspicious bony lesions. Soft tissues: Overlying bowel gas pattern is normal. No suspicious soft tissue calcifications. IMPRESSION: Mild degenerative disc disease throughout lumbar spine. Mild dextroscoliosis centered at L2 level. Minimal anterolisthesis of L3 on L4. No acute compression fracture. Reviewed by: Estrada White MD on 06/18/2021 2:26 PM PDT Approved by: Estrada White MD on 06/18/2021 2:26 PM PDT Station ID: [id number]
--- NOTE | 2021-06-18 14:31 | XRAY Report ---
PROCEDURE: Hip w/Pelvis 2-3V LT INDICATIONS: LEFT HIP PAIN TECHNIQUE: AP pelvis with lateral view(s) of the left hip(s). COMPARISON: None. FINDINGS: Bones: No fractures or dislocations. Mild to moderate left hip joint osteophytic changes are seen. No evidence of avascular necrosis of femoral head. Pelvic ring appears intact. No suspicious bony le sions. Soft tissues: The visualized bowel gas pattern is normal. No suspicious soft tissue calcifications. IMPRESSION: Mild to moderate left hip joint osseous arthritis. No fracture or dislocation. No evidenc e of avascular necrosis. Reviewed by: Estrada White MD on 06/18/2021 2:30 PM PDT Approved by: Estrada White MD on 06/18/2021 2:30 PM PDT Station ID: [id number]
== END 2021-06-18 14:14 ==
LOC: DI.N 14:12
PROVIDERS: ATTEND Family Medicine
DX: M51.36 Other intervertebral disc degeneration, lumbar region (principal); M47.816 Spondylosis without myelopathy or radiculopathy, lumbar region; M43.16 Spondylolisthesis, lumbar region; M41.9 Scoliosis, unspecified; M16.12 Unilateral primary osteoarthritis, left hip

== ENCOUNTER 2021-06-24 13:21 | Outpatient (CLI) | payer MEDICARE, MEDICAID ==
[2021-06-24 18:57] LABS: RHEUMATOID FACTOR NEGATIVE (Negative)
[2021-06-24 19:00] LABS: HGB - HEMOGLOBIN 13.2 g/dL (12.0-16.0); RED BLOOD COUNT 4.18 10^6/uL (4.20-5.40); WHITE BLOOD COUNT 15.3 x10^3/uL (4.8-10.8)
[2021-06-24 19:01] LABS: HCT - HEMATOCRIT 40.3 % (37.0-47.0); MEAN CORPUSCULAR HEMOGLOBIN 31.6 pg (27.0-31.0); MEAN CORPUSCULAR HGB CONC 32.8 g/dL (32.0-36.0); MEAN CORPUSCULAR VOLUME 96.4 fL (81.0-99.0); MEAN PLATELET VOLUME 9.9 fL (7.9-10.8); RED CELL DISTRIBUTION WIDTH 45.5 % (12.0-15.0)
== END 2021-06-24 13:22 | disposition home or self-care (01) ==
LOC: LAB.N 13:21
PROVIDERS: ATTEND Family Medicine
DX: M54.5 Low back pain (principal); M25.552 Pain in left hip
CPT/HCPCS: 36415; 85027; 85651; 86140; 86430

== ENCOUNTER 2021-06-29 17:07 | Outpatient (CLI) | payer MEDICARE, MEDICAID ==
[2021-06-29 20:42] LABS: BASOPHILS # (AUTO) 0.1 10^3/uL (0.0-0.1); BASOPHILS % (AUTO) 0.5 %; EOSINOPHILS # (AUTO) 0.1 10^3/uL (0.0-0.7); HCT - HEMATOCRIT 42.7 % (37.0-47.0); HGB - HEMOGLOBIN 13.7 g/dL (12.0-16.0); LYMPHOCYTES # (AUTO) 4.7 10^3/uL (1.5-3.5); LYMPHOCYTES % (AUTO) 34.7 %; MEAN CORPUSCULAR HEMOGLOBIN 31.3 pg (27.0-31.0); MEAN CORPUSCULAR HGB CONC 32.1 g/dL (32.0-36.0); MEAN CORPUSCULAR VOLUME 97.5 fL (81.0-99.0); MEAN PLATELET VOLUME 9.7 fL (7.9-10.8); MONOCYTES # (AUTO) 0.6 10^3/uL (0.0-1.0); MONOCYTES % (AUTO) 4.4 %; NEUTROPHILS % (AUTO) 58.9 %; PLT - PLATELET COUNT 345 10^3/uL (130-450); RED BLOOD COUNT 4.38 10^6/uL (4.20-5.40); RED CELL DISTRIBUTION WIDTH 12.9 % (12.0-15.0); WHITE BLOOD COUNT 13.6 x10^3/uL (4.8-10.8)
[2021-06-29 20:49] LABS: BILIRUBIN,URINE NEGATIVE (NEGATIVE); GLUCOSE, URINE (UA) NEGATIVE (NEGATIVE); KETONES,URINE (UA) NEGATIVE (NEGATIVE); LEUKOCYTE ESTERASE, URINE NEGATIVE (NEGATIVE); NITRITE,URINE NEGATIVE (NEGATIVE); OCCULT BLOOD,URINE NEGATIVE (NEGATIVE); PROTEIN,URINE NEGATIVE (NEGATIVE); UROBILINOGEN,URINE 0.2 (NORMAL) E.U./dL (NORMAL)
[2021-06-29 21:10] LABS: BACTERIA,URINE None Seen /HPF (None Seen); CLARITY,URINE CLEAR (CLEAR); RBC,URINE None Seen /HPF (0-5); SQUAMOUS EPITHELIAL CELL,UR NONE SEEN (<= Few); WBC,URINE 0-3 /HPF (0-5)
== END 2021-06-29 17:08 | disposition home or self-care (01) ==
LOC: LAB.N 17:07
PROVIDERS: ATTEND Family Medicine
DX: D72.828 Other elevated white blood cell count (principal)
CPT/HCPCS: 36415; 81001; 85025; 87086

== ENCOUNTER 2021-06-29 17:14 | Outpatient (CLI) | payer MEDICARE, MEDICAID ==
--- NOTE | 2021-06-30 08:13 | XRAY Report ---
PROCEDURE: Chest 2 View X-Ray INDICATIONS: ELEVATED WHITE BOLLD CELL COUNT TECHNIQUE: 2 view(s) of the chest. COMPARISON: 10/11/2020 FINDINGS: Surgical changes and devices: None. Lungs and pleura: No pleural effusions or pneumothorax. Lungs are clear. Mediastinum: Mediastinal contours are normal. Heart size is normal. Bones and chest wall: No suspicious bony abnormalities. Soft tissues appear unremarkable. IMPRESSION: No evidence acute pulmonary process. Reviewed by: Dannie Mejias MD on 06/30/2021 8:12 AM PDT Approved by: Dannie Mejias MD on 06/30/2021 8:12 AM PDT Station ID: [id number]
== END 2021-06-29 17:15 | disposition home or self-care (01) ==
LOC: DI.N 17:14
PROVIDERS: ATTEND Family Medicine
DX: D72.828 Other elevated white blood cell count (principal)
CPT/HCPCS: 36415; 81001; 85025; 87086

== ENCOUNTER 2021-09-30 11:08 | Outpatient (CLI) | payer MEDICARE, MEDICAID ==
[2021-09-30 18:31] LABS: CHOL/HDL RATIO 3.6 (<4.4); CHOLESTEROL 182 mg/dL; HDL CHOLESTEROL 50 mg/dL; LDL CHOLESTEROL,CALCULATED 113 mg/dL; LDL/HDL RATIO 2.3 (<4.4); TRIGLYCERIDES 96 mg/dL; VLDL CHOLESTEROL 19 mg/dL
[2021-09-30 21:14] LABS: ESTIMATED AVERAGE GLUCOSE 105 mg/dL (70-100); HEMOGLOBIN A1c% 5.3 % (4.27-6.07)
== END 2021-09-30 11:09 | disposition home or self-care (01) ==
LOC: LAB.N 11:08
PROVIDERS: ATTEND Psychiatry & Neurology Psychiatry
DX: F43.12 Post-traumatic stress disorder, chronic (principal); F33.42 Major depressive disorder, recurrent, in full remission; Z79.899 Other long term (current) drug therapy
CPT/HCPCS: 36415; 80061; 83036; 83721

== ENCOUNTER 2021-10-04 09:45 | Outpatient (CLI) | payer MEDICARE, MEDICAID ==
--- NOTE | 2021-10-04 14:35 | XRAY Report ---
PROCEDURE: Foot 3 View LT INDICATIONS: PROXIMAL 3RD AND 4TH MT FX LEFT FOOT TECHNIQUE: 3 views of the foot were acquired. COMPARISON: None FINDINGS: Bones: There is a nondisplaced fracture of the proximal third metatarsal. No fracture of the fourth m etatarsal is identified on these images. Soft tissues: No tibiotalar joint effusion. Achilles tendon appears normal. IMPRESSION: Nondisplaced fracture of the proximal third metatarsal. Reviewed by: Hi Enciso on 10/04/2021 1:34 PM MICHAEL Approved by: Hi Enciso on 10/04/2021 1:34 PM [facility] Station ID: [id number]
== END 2021-10-04 23:59 | disposition home or self-care (01) ==
LOC: DI.N 09:45
PROVIDERS: ATTEND Orthopaedic Surgery
DX: S92.335A Nondisplaced fracture of third metatarsal bone, left foot, initial encounter for closed fracture (principal)

== ENCOUNTER 2021-11-04 07:48 | Outpatient (CLI) | payer MEDICARE, MEDICAID ==
--- NOTE | 2021-11-05 10:18 | XRAY Report ---
PROCEDURE: Foot 3 View LT INDICATIONS: LEFT 3RD MT FX F/U TECHNIQUE: 3 views of the foot were acquired. COMPARISON: X-ray foot 10/04/2021 FINDINGS: Bones: There is stable alignment of proximal third metatarsal fracture. Fracture lucency remains rela tively unchanged. There is a questionable lucency, nondisplaced the base of the fourth metatarsal not visualized on prior exam. This could be projectional, as it is only seen on one view. No suspicious bony lesions. Soft tissues: No tibiotalar joint effusion. Achilles tendon appears normal. IMPRESSION: Stable alignment without interval change of proximal third metatarsal fracture. Interval lucency at the base of the fourth metatarsal possibly projectional. Recommend correlation of point tenderness to exclude potential of underlying fracture. Reviewed by: Sherrell Winchester MD on 11/05/2021 10:16 AM PST Approved by: Sherrell Winchester MD on 11/05/2021 10:16 AM PST Station ID: [id number]
== END 2021-11-04 07:49 | disposition home or self-care (01) ==
LOC: DI.WOS 07:48
PROVIDERS: ATTEND Orthopaedic Surgery
DX: S92.335D Nondisplaced fracture of third metatarsal bone, left foot, subsequent encounter for fracture with routine healing (principal)

== ENCOUNTER 2021-11-30 13:12 | Emergency (ER) | payer MEDICARE, MEDICAID ==
[2021-11-30] MEDS ORDERED: METOCLOPRAMIDE 10 MG/2 ML VIAL IVP STA (13:49)
[2021-11-30] MEDS ORDERED: SODIUM CHLORIDE 0.9% 1,000 ML IV STA (13:49)
[2021-11-30] MEDS ORDERED: KETOROLAC 15 MG/ML VIAL IVP STA (13:49)
[2021-11-30] MEDS ORDERED: diphenhydrAMINE INJ 50 MG/ML VIAL IVP STA (13:49)
--- NOTE | 2021-11-30 13:51 | ED Physician Documentation ---
PD HPI HEADACHE - Stated complaint Stated Complaint: HEAD PX - Chief complaint Chief Complaint: Neuro - History obtained from History obtained from: Patient - Additional information Additional information: 56-year-old woman with frequent migraines, states she has migraines more than half of the days of the month. Uses Imitrex nasal spray at home which has not been helpful. Her headache is typical for her migraines without new neck stiffness, noting some chronic neck pain and no fevers. 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: Hysterectomy, Other (breast lumpectomy) - Present Medications Home Medications: Ambulatory Orders Medication Instructions Recorded Confirmed Atorvastatin [Lipitor] 20 mg PO DAILY 11/13/20 11/13/20 Duloxetine HCl [Cymbalta] 60 mg PO DAILY 11/13/20 11/13/20 Ergocalciferol [Vitamin D2] 50,000 unit PO Q7D 11/13/20 11/13/20 clonazePAM [Clonazepam] 1 mg PO DAILY 11/13/20 11/13/20 traZODone [Desyrel] 50 mg PO HS 11/13/20 11/13/20 oxyCODONE [Roxicodone] 5 - 10 mg PO Q4H PRN #30 tablet 11/14/20 - Allergies Allergies/Adverse Reactions: Allergies Allergy/AdvReac Type Severity Reaction Status Date / Time ketamine AdvReac Hallucinati Verified 11/30/21 13:19 ons - Social History Does the pt smoke?: Yes Smoking Status: Current every day smoker (1/2 pack per day 20 years) Does the pt drink ETOH?: Yes Does the pt have substance abuse?: No - Immunizations Immunizations are current?: Yes - POLST Patient has POLST: No PD ED PE NORMAL - Vitals Vital signs reviewed: Yes - General General: Alert and oriented X 3, Other (She appears uncomfortable and photophobic but nontoxic) - HEENT HEENT: PERRL, EOMI - Neck Neck: Supple, no meningeal sign, No bony TTP - Neuro Neuro: Alert and oriented X 3, blueprint processor 2-12 intact, No motor deficit, No sensory deficit, Normal speech Eye Opening: Spontaneous Motor: Obeys Commands Verbal: Oriented GCS Score: 15 - Psych Psych: Normal mood, Normal affect Results - Vitals Vitals: Vital Signs - 24 hr 11/30/21 13:16 Temperature 36.3 C L Heart Rate 77 Respiratory 16 Rate Blood Pressure 118/77 O2 Saturation 97 Oxygen O2 Source Room air PD MEDICAL DECISION MAKING - ED course ED course: 56-year-old woman with chronic migraines presents with her usual headache resistant to her home meds. After the administration of IV Toradol, Benadryl, and Reglan she was feeling much better and requested discharge. Departure - Departure Disposition: 01 Home, Self Care Clinical Impression: Migraine Qualifiers: Migraine type: with aura Status migrainosus presence: with status migrainosus I ntractability: intractable Qualified Code(s): G43.111 - Migraine with aura, intractable, with status migrainosus Condition: Good Record reviewed to determine appropriate education?: Yes Instructions: ED Headache Migraine Comments: Talk with your doctor about prophylactic medications for migraine prevention such as amitriptyline or propranolol noting that you had intolerable side effects with Topamax in the past. Return for new or worsening symptoms.
[2021-11-30 15:03] VITALS: BP 129/89
== END 2021-11-30 15:15 | disposition home or self-care (01) ==
LOC: ED 13:12
DX: G43.111 Migraine with aura, intractable, with status migrainosus (principal); F17.200 Nicotine dependence, unspecified, uncomplicated
CPT/HCPCS: 96374; 96375; 99283; J1200; J2765

== ENCOUNTER 2021-12-21 08:00 | Outpatient (CLI) | payer MEDICARE, MEDICAID ==
--- NOTE | 2021-12-21 12:12 | XRAY Report ---
PROCEDURE: Foot 3 View LT INDICATIONS: METATARSAL FRACTURE TECHNIQUE: 3 views of the foot were acquired. COMPARISON: 11/04/2021 FINDINGS: Bones: Previously seen proximal third and fourth metatarsal lucencies are less distinct, consistent with healing. No acute fractures or dislocations. No suspicious bony lesions. Soft tissues: No tibiotalar joint effusion. Achilles tendon appears normal. IMPRESSION: Healing metatarsal fractures. Reviewed by: Bairon Lowery MD on 12/21/2021 12:11 PM [facility] Approved by: Bairon Lowery MD on 12/21/2021 12:11 PM [facility] Station ID: [id number]
== END 2021-12-21 23:59 ==
LOC: DI.WOS 08:00
PROVIDERS: ATTEND Orthopaedic Surgery
DX: S92.332D Displaced fracture of third metatarsal bone, left foot, subsequent encounter for fracture with routine healing (principal); S92.342D Displaced fracture of fourth metatarsal bone, left foot, subsequent encounter for fracture with routine healing

== ENCOUNTER 2022-01-27 12:26 | Outpatient (CLI) | payer MEDICARE, MEDICAID | END 2022-01-27 12:27 | disposition home or self-care (01) | LOC: LAB 12:26 | PROVIDERS: ATTEND Internal Medicine | DX: E55.9 Vitamin D deficiency, unspecified (principal) | CPT/HCPCS: 82306 ==

== ENCOUNTER 2022-10-07 19:39 | Emergency (ER) | payer MEDICARE, MEDICAID ==
[2022-10-07 19:51] VITALS: BP 148/89
--- NOTE | 2022-10-08 01:33 | ED Physician Documentation ---
History of Present Illness - Stated complaint Stated Complaint: WIRE IN BUTT - Chief complaint Chief Complaint: Laceration - History obtained from History obtained from: Patient - History of Present Illness Timing: Last night Worsened by: sitting - Additonal information Additional information: patient was cleaning out a garage when she fell backwards onto a box that had electrical wires in it. Patient says she had sudden onset sharp pain to left buttock which has persisted since she fell. She notes exacerbation of a sharp FB sensation when pressure is applied to the left buttock such as when sitting or on palpation of the area. 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 Psych: Depression, Anxiety Musculoskeletal: Osteoporosis Derm: None - Past Surgical History Past Surgical History: Yes General: Other Ortho: Other /ENAMEL BUFFER: Hysterectomy, Other - Present Medications Home Medications: Ambulatory Orders Medication Instructions Recorded Confirmed Atorvastatin [Lipitor] 20 mg PO DAILY 11/13/20 10/08/22 Duloxetine HCl [Cymbalta] 60 mg PO DAILY 11/13/20 10/08/22 clonazePAM [Clonazepam] 1 mg PO DAILY 11/13/20 10/08/22 QUEtiapine [SEROquel] 25 mg PO DAILY 10/08/22 10/08/22 - Allergies Allergies/Adverse Reactions: Allergies Allergy/AdvReac Type Severity Reaction Status Date / Time ketamine AdvReac Hallucinati Verified 10/07/22 19:51 ons - Social History Does the pt smoke?: Yes Smoking Status: Current every day smoker Does the pt drink ETOH?: Yes Does the pt have substance abuse?: No - Immunizations Immunizations are current?: Yes - POLST Patient has POLST: No PD ED PE NORMAL - Vitals Vital signs reviewed: Yes - General General: Alert and oriented X 3, No acute distress, Well developed/nourished PD ED PE EXPANDED - Visual Whole body visual: 1 - tenderness (mild TTP of skin over left ischial tuberosity without echymosis, swelling, visualized FB, puncture wound. [employer] present (KAYA Espinoza)) Results - Vitals Vitals: Oxygen O2 Source Room air - Rads (name of study) sacrum/coccyx xrays Radiology: Prelim report reviewed, EMP read indepedently, See rad report PD Medical Decision Making - ED course Complexity details: reviewed results, re-evaluated patient, considered differential, d/w patient ED course: fell on a box of electrical wires with FB sensation associated with the injury. She says her boyfriend pulled a wire (possibly a filament of electrical wire by her description) out of the area of injury. No FB visualized on exam nor on plain-film xrays. Results of xrays d/w patient. At this time, no further testing likely to be of diagnostic benefit. I instructed her to return if worse (such as worsening pain) as well as if she develops fever, redness, swelling, discharge (of/from the area of injury) Departure - Departure Disposition: 01 Home, Self Care Clinical Impression: Fall Condition: Good Instructions: ED Contusion Soft Tissue Comments: Your x-rays do not show any evidence of a foreign body. As we discussed, metallic foreign bodies typically show up quite well on x-ray. It is possible t hat you have a foreign body that is too thin or too small to show up on these x- rays, though this would be unlikely given how well metal shows up on x-ray. Return to the emergency department if the pain worsens, or if you develop redness and swelling around the area of injury, discharge from the area of injury, or fever. Follow-up with your primary care provider in 5 to 7 days if the pain has not resolved Discharge Date/Time: 10/08/22 04:19
--- NOTE | 2022-10-08 11:48 | XRAY Report ---
PROCEDURE: Sacrum/Coccyx INDICATIONS: possible left buttock FB TECHNIQUE: 3 views of the sacrum and coccyx acquired. COMPARISON: None FINDINGS: Bones: No fractures or dislocations. No suspicious bony lesions. Age-appropriate degenerative cade ges are seen, including involving the visualized lower lumbar spine. Soft tissues: Visualized bowel gas pattern is normal. No suspicious soft tissue densities. The are a of soft tissue injury is marked with a BB marker. No radiopaque foreign bodies are seen. IMPRESSION: No radiopaque foreign bodies are seen. No acute bony abnormality is seen. Note: No significant discrepancy from the preliminary report. Reviewed by: Roman Scott MD on 10/08/2022 10:47 AM [facility] [place] Approved by: Roman Scott MD on 10/08/2022 10:47 AM [facility] [place] Station ID: [id number]
== END 2022-10-08 04:19 | disposition home or self-care (01) ==
LOC: ED 19:39
DX: S31.030A Puncture wound without foreign body of lower back and pelvis without penetration into retroperitoneum, initial encounter (principal); W18.30XA Fall on same level, unspecified, initial encounter
CPT/HCPCS: 99281; 99283

== ENCOUNTER 2022-12-26 20:16 | Emergency (ER) | payer MEDICARE, MEDICAID ==
[2022-12-26 20:28] VITALS: BP 121/78
[2022-12-26] MEDS ORDERED: KETOROLAC 30 MG/ML VIAL IM STA (20:38)
--- NOTE | 2022-12-26 20:41 | ED Physician Documentation ---
History of Present Illness - Stated complaint Stated Complaint: MIGRAINE - Chief complaint Chief Complaint: Neuro - History obtained from History obtained from: Patient - Additonal information Additional information: 57-year-old woman with history of migraines presents with 3 days of gradual onset continuous right-sided headache, aching quality, located behind the eye, nonradiating, associated with ear ringing tonight. Denies fever, neck pain, head injury, confusion.Denies vision changes. Review of Systems Constitutional: denies: Fever Eyes: denies: Loss of vision GI: denies: Nausea Musculoskeletal: denies: Neck pain Neurologic: reports: Headache. 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, Other - Present Medications Home Medications: Ambulatory Orders Medication Instructions Recorded Confirmed Atorvastatin [Lipitor] 20 mg PO DAILY 11/13/20 12/26/22 Duloxetine HCl [Cymbalta] 60 mg PO DAILY 11/13/20 12/26/22 clonazePAM [Clonazepam] 1 mg PO DAILY 11/13/20 12/26/22 QUEtiapine [SEROquel] 25 mg PO DAILY 10/08/22 12/26/22 - Allergies Allergies/Adverse Reactions: Allergies Allergy/AdvReac Type Severity Reaction Status Date / Time ketamine AdvReac Hallucinati Verified 12/26/22 20:23 ons - Social History Does the pt smoke?: Yes Smoking Status: Current every day smoker Does the pt drink ETOH?: Yes Does the pt have substance abuse?: No - Immunizations Immunizations are current?: Yes - POLST Patient has POLST: No PD ED PE NORMAL - Vitals Vital signs reviewed: Yes - General General: Alert and oriented X 3, No acute distress, Well developed/nourished - HEENT HEENT: Atraumatic, PERRL, EOMI - Neck Neck: Supple, no meningeal sign - Respiratory Respiratory: No respiratory distress - Neuro Neuro: Alert and oriented X 3, No motor deficit, No sensory deficit Eye Opening: Spontaneous Motor: Obeys Commands Verbal: Oriented GCS Score: 15 - Psych Psych: Normal mood Results - Vitals Vitals: Vital Signs - 24 hr 12/26/22 20:25 Temperature 37.2 C Heart Rate 94 Respiratory 16 Rate Blood Pressure 121/78 O2 Saturation 100 Oxygen O2 Source Room air PD Medical Decision Making - ED course ED course: 57-year-old woman with history of migraines presents with headache tonight, requesting Toradol and declining other medications. Plan to reevaluate after intramuscular injection of 30 mg Toradol. Headache resolved with toradol. Patient to be dc'd home. return precautions given. f/u with pcp. Departure - Departure Disposition: , Self Care Clinical Impression: Headache Condition: Good Instructions: ED Headache Migraine Comments: You were seen in the emergency department for headache. Your vital signs and exam uncovered no emergent issues. You were given 30 mg of intramuscular Toradol by injection. Please follow-up with your primary care provider and return to the emergency department for new or worsening symptoms or if you have other concerns.
== END 2022-12-26 21:32 | disposition home or self-care (01) ==
LOC: ED 20:16
DX: R51.9 Headache, unspecified (principal); F17.200 Nicotine dependence, unspecified, uncomplicated; E78.00 Pure hypercholesterolemia, unspecified; Z79.899 Other long term (current) drug therapy
CPT/HCPCS: 96372; 99283

== ENCOUNTER 2023-10-24 08:39 | Emergency (ER) | payer MEDICARE, MEDICAID ==
[2023-10-24 09:31] LABS: BILIRUBIN,URINE NEGATIVE (NEGATIVE); GLUCOSE, URINE (UA) NEGATIVE (NEGATIVE); KETONES,URINE (UA) NEGATIVE (NEGATIVE); LEUKOCYTE ESTERASE, URINE TRACE (NEGATIVE); NITRITE,URINE NEGATIVE (NEGATIVE); OCCULT BLOOD,URINE LARGE (NEGATIVE); PROTEIN,URINE >=300 mg/dL (NEGATIVE); UROBILINOGEN,URINE 0.2 (NORMAL) E.U./dL (NORMAL)
[2023-10-24 09:32] LABS: CLARITY,URINE BLOODY (CLEAR)
[2023-10-24 09:46] LABS: BACTERIA,URINE Moderate /HPF (None Seen); RBC,URINE TNTC /HPF (0-5); SQUAMOUS EPITHELIAL CELL,UR FEW Squamous (<= Few)
[2023-10-24] MEDS ORDERED: SULFAMETH/TRIMETH DS 800/160 MG TABLET PO STA (09:56)
[2023-10-24] MEDS ORDERED: PHENAZOPYRIDINE 100 MG TABLET PO STA (09:57)
--- NOTE | 2023-10-24 10:32 | ED Physician Documentation ---
History of Present Illness - Stated complaint Stated Complaint: - Chief complaint Chief Complaint: UTI - History obtained from History obtained from: Patient - Additonal information Additional information: Pt comes to the ED with CC of dysuria and frequency for the past couple of days. Today, she had some hematuria. No fever, chills, nausea, or vomiting. No other complaints at this time. 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, Other Psych: Depression, Anxiety Musculoskeletal: Osteoporosis Derm: None - Past Surgical History Past Surgical History: Yes General: Other Ortho: Other /MANAGER PMO: Hysterectomy, Other - Present Medications Home Medications: Ambulatory Orders Medication Instructions Recorded Confirmed Atorvastatin [Lipitor] 20 mg PO DAILY 11/13/20 10/24/23 Duloxetine HCl [Cymbalta] 60 mg PO DAILY 11/13/20 10/24/23 clonazePAM [Clonazepam] 1 mg PO DAILY 11/13/20 10/24/23 QUEtiapine [SEROquel] 25 mg PO DAILY 10/08/22 10/24/23 Cyclobenzaprine [Flexeril] 10 mg PO TID PRN 10/24/23 10/24/23 Fluconazole [Diflucan] 100 mg PO DAILY PRN #2 tablet 10/24/23 HYDROcod/ACETAM 5/325 [[place] 5/325] 1 - 2 tablet PO Q6H PRN #10 tablet 10/24/23 Phenazopyridine HCl [Pyridium] 200 mg PO TID PRN #6 tablet 10/24/23 Sulfamethox/Trimeth 800/160 1 each PO BID #14 tablet 10/24/23 [Bactrim Ds 800/160] - Allergies Allergies/Adverse Reactions: Allergies Allergy/AdvReac Type Severity Reaction Status Date / Time ketamine AdvReac Hallucinati Verified 10/24/23 08:49 ons - Social History Does the pt smoke?: Yes Smoking Status: Current every day smoker Does the pt drink ETOH?: No Does the pt have substance abuse?: Yes Substance Use and Type: CBD oil / Products - Immunizations Immunizations are current?: No Immunizations: Other immun not current - POLST Patient has POLST: No PD ED PE NORMAL - Vitals Vital signs reviewed: Yes - General General: Alert and oriented X 3, No acute distress - HEENT HEENT: Atraumatic, EOMI, Moist mucous membranes - Neck Neck: Supple, no meningeal sign - Cardiac Cardiac: RRR, No murmur - Respiratory Respiratory: No respiratory distress, Clear bilaterally - Abdomen Abdomen: Soft, Non tender, Non distended - Derm Derm: Normal color, Warm and dry, No rash - Extremities Extremities: No deformity - Neuro Neuro: Alert and oriented X 3 - Psych Psych: Normal mood, Normal affect Results - Vitals Vitals: Oxygen O2 Source Room air - Labs Labs: Microbiology 10/24/23 09:02 Urine Culture - Final Urine,Random Laboratory Tests 10/24/23 09:02 Urine Color RED/BLOODY Urine Clarity BLOODY Urine pH 6.0 Ur Specific [place] >=1.030 H Urine Protein >=300 H Urine Glucose (UA) NEGATIVE Urine Ketones NEGATIVE Urine Occult Blood LARGE H Urine Nitrite NEGATIVE Urine Bilirubin NEGATIVE Urine Urobilinogen 0.2 (NORMAL) Ur Leukocyte Esterase TRACE H Urine RBC TNTC H Urine WBC 6-10 H Ur Squamous Epith Cells FEW Squamous Urine Bacteria Moderate H Ur Microscopic Review INDICATED Urine Culture Comments INDICATED PD Medical Decision Making - ED course Complexity details: reviewed results, re-evaluated patient, considered differential, d/w patient ED course: The pt's urinalysis was positive for infection, and she was started on antibiotics. We have discussed the usual indications for return. Departure - Departure Disposition: 01 Home, Self Care Clinical Impression: Urinary tract infection Qualifiers: Urinary tract infection type: acute cystitis Hematuria presence: with hematuria Qualified Code(s): N30.01 - Acute cystitis with hematuria Condition: Stable Instructions: ED UTI Cystitis Female Prescriptions: Sulfamethox/Trimeth 800/160 [Bactrim Ds 800/160] 1 each PO BID #14 tablet Fluconazole [Diflucan] 100 mg PO DAILY PRN #2 tablet PRN Reason: yeast infection HYDROcod/ACETAM 5/325 [[place] 5/325] 1 - 2 tablet PO Q6H PRN #10 tablet PRN Reason: Pain Phenazopyridine HCl [Pyridium] 200 mg PO TID PRN #6 tablet PRN Reason: dysuria Comments: Your urinalysis is positive for infection. You have been started on antibiotics for this here in the ED today and prescriptions for the same, as well as for yeast infection and urinary discomfort, have been electronically transmitted to the [facility] pharmacy in [place]. Please pick them up this afternoon. Please be sure you are drinking plenty of water at home and staying hydrated. Please follow-up with your primary doctor as needed. Forms: PCP List Discharge Date/Time: 10/24/23 10:40
[2023-10-24 10:44] VITALS: BP 125/72; O2SAT 100
== END 2023-10-24 10:40 | disposition home or self-care (01) ==
LOC: ED 08:39
DX: N30.01 Acute cystitis with hematuria (principal); F17.200 Nicotine dependence, unspecified, uncomplicated
CPT/HCPCS: 81001; 87086; 99283; A9270; 81003

== ENCOUNTER 2024-05-13 18:27 | Emergency (ER) | payer MEDICARE, MEDICAID ==
[2024-05-13 18:45] VITALS: O2SAT 99
--- NOTE | 2024-05-13 19:00 | ED Physician Documentation ---
History of Present Illness - Stated complaint Stated Complaint: LT WRIST INJ - Chief complaint Chief Complaint: Ext Problem - History obtained from History obtained from: Patient - Additonal information Additional information: 58-year-old female presented with left wrist pain after a fall on outstretched hand after tripping over a chair. She has pain and swelling left wrist, no treatment prior to arrival. 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: Hysterectomy, Other - Present Medications Home Medications: Ambulatory Orders Medication Instructions Recorded Confirmed Atorvastatin [Lipitor] 20 mg PO DAILY 11/13/20 10/24/23 Duloxetine HCl [Cymbalta] 60 mg PO DAILY 11/13/20 10/24/23 clonazePAM [Clonazepam] 1 mg PO DAILY 11/13/20 10/24/23 QUEtiapine [SEROquel] 25 mg PO DAILY 10/08/22 10/24/23 Cyclobenzaprine [Flexeril] 10 mg PO TID PRN 10/24/23 10/24/23 Fluconazole [Diflucan] 100 mg PO DAILY PRN #2 tablet 10/24/23 HYDROcod/ACETAM 5/325 [[place] 5/325] 1 - 2 tablet PO Q6H PRN #10 tablet 10/24/23 Phenazopyridine HCl [Pyridium] 200 mg PO TID PRN #6 tablet 10/24/23 Sulfamethox/Trimeth 800/160 1 each PO BID #14 tablet 10/24/23 [Bactrim Ds 800/160] - Allergies Allergies/Adverse Reactions: Allergies Allergy/AdvReac Type Severity Reaction Status Date / Time ketamine AdvReac Hallucinati Verified 05/13/24 18:41 ons - Social History Does the pt smoke?: Yes Smoking Status: Current every day smoker Does the pt drink ETOH?: No Does the pt have substance abuse?: Yes - Immunizations Immunizations are current?: No Immunizations: Other immun not current - POLST Patient has POLST: No PD ED PE NORMAL - Vitals Vital signs reviewed: Yes - General General: Alert and oriented X 3, No acute distress, Well developed/nourished - HEENT HEENT: Atraumatic, Moist mucous membranes - Derm Derm: Normal color, Warm and dry, No rash - Extremities Extremities: Other (Tenderness on left wrist, neurovascularly intact.) Results - Vitals Vitals: Vital Signs - 24 hr 05/13/24 18:36 Temperature 36.4 C L Heart Rate 93 Respiratory 15 Rate Blood Pressure 126/70 O2 Saturation 99 Oxygen O2 Source Room air - Rads (name of study) No standard instances Relevant Findings:: Final report received PD Medical Decision Making - ED course Complexity details: reviewed results, re-evaluated patient, considered differential, d/w patient ED course: 50-year-old female presented with left wrist pain after a fall on outstretched hand. X-ray is negative, likely a sprain. I discussed with patient that there is potential for occult fracture and if still painful in 10 to 14 days to follow-up with PCP for imaging. Recommended supportive measures in the meantime, cool compress, ibuprofen and Tylenol, Velcro wrist splint. Departure - Departure Disposition: 01 Home, Self Care Clinical Impression: Left wrist sprain Qualifiers: Encounter type: initial encounter Qualified Code(s): S63.502A - Unspecified sprain of left wrist, initial encounter Condition: Good Instructions: ED Sprain Wrist Comments: Your x-ray does not show any broken bones. You likely have a sprain. Use the Velcro wrist splint as needed, and use a cool compress, ibuprofen and Tylenol for pain. If you are still having a lot of pain in 10 to 14 days, follow-up with your primary doctor for repeat x-ray for possible hairline fracture that was not seen on initial exam. Forms: PCP List
--- NOTE | 2024-05-13 19:15 | XRAY Report ---
PROCEDURE: Wrist 1-2V LT INDICATIONS: FOOSH onto cement floor TECHNIQUE: 2 views of the wrist were acquired. COMPARISON: None. FINDINGS: Bones: No fractures or dislocations. No suspicious bony lesions. Soft tissues: No suspicious soft tissue calcifications or masses. IMPRESSION: No visualized acute fracture or dislocation. However, occult injury cannot be excluded. Recommend grey rt interval imaging follow-up in 7-10 days as clinically indicated for additional evaluation. Reviewed by: Sherrell Winchester MD on 05/13/2024 7:14 PM PDT Approved by: Sherrell Winchester MD on 05/13/2024 7:14 PM PDT Station ID: [id number]
[2024-05-13 20:22] VITALS: BP 131/76
== END 2024-05-13 20:21 | disposition home or self-care (01) ==
LOC: ED 18:27
DX: S63.502A Unspecified sprain of left wrist, initial encounter (principal); W01.0XXA Fall on same level from slipping, tripping and stumbling without subsequent striking against object, initial encounter; E78.00 Pure hypercholesterolemia, unspecified; F17.290 Nicotine dependence, other tobacco product, uncomplicated
CPT/HCPCS: 99283